=== PATIENT | female | born 1985 ===

== ENCOUNTER 2025-01-23 09:14 | Outpatient (CLI) | payer OTHER | END 2025-01-23 09:18 | disposition home or self-care (01) | LOC: TOM 09:14 | PROVIDERS: ATTEND Obstetrics & Gynecology | DX: N91.2 Amenorrhea, unspecified (principal); N97.1 Female infertility of tubal origin ==

== ENCOUNTER 2025-08-30 08:00 | Day surgery (SDC) | payer OTHER ==
[2025-08-30] MEDS ORDERED: CIPROFLOXACIN IN 5 % DEXTROSE 400 MG/200 ML PIGGYBAG IV ONE (08:50)
[2025-08-30] MEDS ORDERED: SUGAMMADEX SODIUM 200 MG/2 ML VIAL IV ONE (09:28)
[2025-08-30] MEDS ORDERED: LIDOCAINE HCL 1%/EPINEPHRINE 20ML VIAL IJ ONE (09:29)
[2025-08-30] MEDS ORDERED: BUPIVACAINE HCL/MPF 0.5% 30ML VIAL ONE (09:29)
[2025-08-30] MEDS ORDERED: POVIDONE-IODINE 118 ML BOTT TOP ONE (10:09)
[2025-08-30] MEDS ORDERED: KETO10TA2 PO (15:17)
[2025-08-30] MEDS ORDERED: TYLENOL ARTHRI650 MG PO (15:19)
== END 2025-08-30 15:50 | disposition home or self-care (01) ==
LOC: CIR.AMB 08:00
PROVIDERS: ATTEND Obstetrics & Gynecology
DX: N73.6 Female pelvic peritoneal adhesions (postinfective) (principal); D25.9 Leiomyoma of uterus, unspecified